=== PATIENT | female | born 1975 | race Caucasian/White ===

== ENCOUNTER 2016-10-25 20:09 | Emergency (ER) | payer MEDICAID, OTHER ==
[~2016-10-25] VITALS: Ht 162.6 cm; Wt 62.0 kg
[2016-10-25 20:25] VITALS: Ht 162.6 cm; Wt 62.0 kg
[2016-10-25] MEDS ORDERED: KETOROLAC 15 MG INJ IM STA (23:35)
[2016-10-25] MEDS ORDERED: ONDANSETRON (ODT) 4 MG TAB ODT STA (23:35)
--- NOTE | 2016-10-25 23:41 | ERD ---
ER Documentation Chief Complaint Date/Time DATE: 10/25/16 TIME: 23:37 Chief Complaint heaqdache x 4 days HPI This pleasant 41-year-old [place]-speaking female presents to emergency department with a four-day history of headache, nausea, vomiting. Headache starts at the back of her neck and moves forward to the top of her head. Headache is described as pounding, patient reports history of headaches usually controlled with Tylenol. Patient reports that she has taken Tylenol last taken yesterday. Patient denies any change in vision, change in speech, photosensitivity, difficulty ambulating or change in behavior. ROS All systems reviewed and are negative except as per history of present illness. Medications Home Meds Active Scripts Ibuprofen* (Motrin*) 600 Mg Tab, 600 MG PO Q6, #30 TAB Prov:JAZ,ROLANDO 10/25/16 Allergies Allergies: Coded Allergies: No Known Allergy (Unverified , 07/27/14) PMhx/Soc History of Surgery: Yes (cholecystectomy) Anesthesia Reaction: No Hx Neurological Disorder: No Hx Respiratory Disorders: No Hx Cardiac Disorders: No Hx Psychiatric Problems: No Hx Miscellaneous Medical Probl: No Hx Alcohol Use: No Hx Substance Use: No Hx Tobacco Use: No Physical Exam Vitals Vital Signs Date Time Temp Pulse Resp B/P Pulse Ox O2 Delivery O2 Flow Rate FiO2 10/25/16 20:25 98.8 84 20 138/69 100 Vitals stable, triage notes reviewed Physical Exam Const: No acute distress Head: Atraumatic, Eyes: Normal Conjunctiva, PERRLA, EOMI ENT: Normal External Ears, Nose and Mouth. Mucous membranes moist Neck: Full range of motion..~ No meningismus. No cervical point tenderness, paraspinal tenderness Resp: Cardio: Abd: Soft, non tender, non distended. Normal bowel sounds Skin: Back: Ext: Neuro: Alert and oriented Face: EOMI, face and pharynx with normal sensation and function Motor: Normal strength throughout Sensation: Normal sensation throughout Speech: Normal Cerebel: Normal coordination Normal gait Normal finger to nose DTR: 2+ and symmetric upper/lower extremities Psych: Normal Mood and Affect Results 24 hrs Laboratory Tests Test 10/25/16 23:51 Bedside Urine pH (LAB) 7.0 Bedside Urine Protein (LAB) Trace Bedside Urine Glucose (UA) Negative Bedside Urine Ketones (LAB) Negative Bedside Urine Blood 2+ Bedside Urine Nitrite (LAB) Negative Bedside Urine Leukocyte Esterase (L Trace Current Medications Medications (Trade) Dose Ordered Sig/Layla Route PRN Reason Start Time Stop Time Status Last Admin Dose Admin Ketorolac Tromethamine (Toradol) 15 mg ONCE STAT IM 10/25/16 23:35 10/25/16 23:38 DC 10/25/16 23:55 Diphenhydramine HCl (Benadryl) 25 mg ONCE ONCE PO 10/26/16 00:00 10/26/16 00:01 DC 10/25/16 23:53 Ondansetron HCl (Zofran Odt) 4 mg ONCE STAT ODT 10/25/16 23:35 10/25/16 23:38 DC 10/25/16 23:53 Procedures/MDM This pleasant 41-year-old female presents to emergency department today with her significant other with report of a four-day history of headache. Patient reports nausea vomiting, headache starting in the back of her neck and radiating to the top of her head. This is not the worse headache that she is ever felt. Patient does not know the exact time that headache started. Patient had been taking Tylenol and Motrin last taken yesterday. Differential diagnosis includes but not limited to subarachnoid bleed, cerebral neoplasm unlikely and imaging is not indicated, no neurologic changes. Tension headache , cluster headache. Patient treated with Toradol, Benadryl, and Zofran effectively. Patient reassessed after 60 minutes with headache described as 1- 2 out of 10 on pain scale. I feel patient can be treated with Motrin outpatient follow-up and management by primary care physician return to emergency room for headache not responding to treatment, nausea, vomiting, change in vision, speech, or behavior. I feel the patient is stable for discharge at this time. I have discussed results, examination findings, the treatment plan with the patient and family present prior to discharge. Indications for emergent reevaluation, side effects of medication were also discussed. All questions were answered. Patient verbalizes understanding and agrees with plan of care. Departure Diagnosis: Primary Impression: Headache Headache type: unspecified Headache chronicity pattern: acute headache Intractability: not intractable Qualified Code: R51 - Acute nonintractable headache, unspecified headache type Condition: Good Patient Instructions: Self-Care for Headaches Additional Instructions: Thank you for for coming to [facility] for your care today. Please ask your nurse or provider if you have questions about your care today and do not leave until all your questions have been answered. Please use any medications given as directed and follow-up with your doctor (or the doctor you were referred to) in the next 2-3 days. If you do not have a primary care doctor you may follow up at the [facility] (listed below). You may also use motrin and tylenol as needed for fever and/or pain unless instructed otherwise by your provider or nurse. Indications for more urgent follow-up have been discussed, but you may return to the Emergency Department at ANY time for any worrisome or worsening symptoms. If you have abdominal pain, please know that no test or exam you received is perfect and you should follow up within 8 hours for continued pain. If you had any imaging studies today, such as an X-Ray or CT Scan, these studies will be reviewed later by a radiologist. You will be called if there are important findings that were not identified today, so make sure the contact information you provided at registration is correct. If you received any narcotic pain control medicine today, such as Vicodin, Morphine or Dilaudid, your coordination and judgment may be affected for a number of hours. Please do not drive or operate heavy machinery, and you may want someone to assist you at home. If you were given a prescription for narcotic medication, be aware that it is very addictive- use sparingly and only if necessary. ROLANDO SEBASTIAN Oct 25, 2016 23:41
[2016-10-25] MEDS ORDERED: IBUP-1542 PO (23:42)
[2016-10-25 23:50] LABS: URINE BLOOD (Dip) POC 2+ (NEGATIVE)
[2016-10-26] MEDS ORDERED: DIPHENHYDRAMINE 25 MG CAP PO ONE
== END 2016-10-26 01:55 | disposition left against medical advice (07) ==
LOC: FTE 20:09
DX: R51 Headache (principal); R11.2 Nausea with vomiting, unspecified
CPT/HCPCS: 81003; J1885; Z7610; 96372